=== PATIENT | female | born 1935 | race African-American/Black ===

== ENCOUNTER 2017-07-12 12:09 | Outpatient (CLI) | payer MEDICARE ==
--- NOTE | 2017-07-12 14:45 | RAD ---
AP PELVIS ONE VIEW: History: 81-year-old female with low back pain and right hip pain. FINDINGS: AP pelvis demonstrates some arthrosis changes of the hip joints and SI joints and spondylosis of the lumbar spine. No acute fracture. IMPRESSION: Degenerative changes without acute fracture of the pelvis. POS: NO
--- NOTE | 2017-07-12 14:46 | RAD ---
RIGHT HIP TWO VIEWS: History: 81-year-old female with right hip pain and low back pain. FINDINGS: Mild degenerative changes right hip joint. No acute fracture or dislocation. Minimal bony deminerali zation. IMPRESSION: No fracture or dislocation. Degenerative changes. POS: NO
--- NOTE | 2017-07-12 14:49 | RAD ---
LUMBAR SPINE THREE VIEWS: History: 81-year-old female with low back pain. FINDINGS: There is bony demineralization. There is multilevel disc osteophytosis with narrowing at L4-5 and L5 -S1 as well as fairly extensive facet arthrosis. Mild levoscoliosis of the lower lumbar and sacral s pine. No focal bone lesion. IMPRESSION: Spondylosis. Mild levoscoliosis. No acute fracture or dislocation. Given potential radiculopathy, co nsideration for a nonemergent MRI study might be of benefit. POS: NO
== END 2017-07-12 12:10 | disposition home or self-care (01) ==
LOC: MADRAD 12:09
PROVIDERS: ATTEND Family Medicine
DX: M25.551 Pain in right hip (principal); M54.5 Low back pain; M47.816 Spondylosis without myelopathy or radiculopathy, lumbar region; M41.9 Scoliosis, unspecified; M16.11 Unilateral primary osteoarthritis, right hip
CPT/HCPCS: 72100; 72170

== ENCOUNTER 2017-10-29 11:53 | Inpatient (IN) | payer MEDICARE, OTHER ==
[2017-10-29 12:18] VITALS: BMI 17.4
[2017-10-29] MEDS ORDERED: Sodium Chloride 0.9% 1,000 ML IV SCH (12:45)
[2017-10-29] MEDS ORDERED: Acetaminophen 650 MG Suppository PR PRN (12:53)
[2017-10-29] MEDS ORDERED: Dextrose 50% Abboject 50 ML SYRINGE SLOW IVP PRN (12:54)
[2017-10-29] MEDS ORDERED: Dextrose 5% in Water 1,000 ML IV PRN (12:54)
[2017-10-29] MEDS ORDERED: Nicotine 21 MG PATCH TD SCH (13:00)
[2017-10-29 13:22] LABS: ALT (SGPT) 13 U/L (8-55); AST (SGOT) 17 U/L (5-34); Albumin 3.8 g/dL (3.4-4.8); Alkaline Phosphatase 52 U/L (40-150); Anion Gap 18 mmol/L (10-20); BUN (Urea Nitrogen) 6 mg/dL (9.8-20.1); Bilirubin, Total 0.5 mg/dL (0.2-1.2); Calc. Creatinine Clearance 40 mL/min (70-130); Calcium 9.7 mg/dL (7.8-10.44); Carbon Dioxide 25 mmol/L (23-31); Chloride 104 mmol/L (98-107); Estimated GFR-MDRD 87; Globulin 4.1 g/dL (2.4-3.5); Glucose 161 mg/dL (83-110); Potassium 3.3 mmol/L (3.5-5.1); Protein, Total 7.9 g/dL (6.0-8.3); Sodium 144 mmol/L (136-145)
[2017-10-29 13:24] LABS: CKMB 3.2 ng/mL (0-6.6); Troponin I 0.019 ng/mL (< 0.028)
[2017-10-29 13:42] LABS: Band 1 % (5-11); Eosinophils 2 % (0-10); Hemoglobin 14.7 g/dL (12.0-16.0); Lymphocytes 16 % (21-51); MDiff Complete? YES; Mean Corpuscular HGB CONC 32.6 g/dL (32.0-36.0); Mean Corpuscular Hemoglobin 30.7 pg (27.0-31.0); Mean Corpuscular Volume 94.3 fl (81.0-99.0); Mean Platelet Volume 5.6 fL (7.4-10.4); Monocytes 9 % (0-10); Neutrophil 72 % (42-75); PLT Morphology Comment Appears Adequate; Platelet Count 348 thou/uL (130-400); White Blood Cell (WBC) Count 7.8 thou/uL (4.8-10.8)
[2017-10-29] MEDS: metFORMIN 500 MG TAB PO SCH (16:04)
[2017-10-29] MEDS: Benzonatate 100 MG CAP PO SCH (16:04)
[2017-10-29] MEDS ORDERED: Potassium Chloride 10 MEQ TAB PO SCH (18:00)
--- NOTE | 2017-10-29 18:38 | HP ---
ATTENDING/PCP: Kimmy Blount M.D. REASON FOR ADMISSION: Shortness of breath. HISTORY OF PRESENT ILLNESS AND HOSPITAL COURSE: Ms. George is an 82-year-old -[place] female with history of COPD, chronic tobacco use, hypertension , diabetes. The patient was initially seen in the clinic at [facility] today for persistent cough for about a week, associated with clear mucopurulent sputum production, shortness of breath, and intermittent wheezing. She reports low grade fever. Upon presentation in the clinic, the patient had a fever of 100.6 with blood pressure of 203/97, respirations 36, and heart rate of 123 with O2 sats of 93% room air. The patient was tachypneic with labored breathing at that time in the clinic. The patient was given DuoNeb x1. The wheezing has improved post-nebs treatment, but overall respiratory status was not completely improved. Patient still reports some dyspnea on walking. Repeat O2 sats was 94% at room air. On further examination, patient's flu swab was negative for flu A and B negative. Outpatient chest x-ray showed changes of COPD seen with new focal density in the left mid lung that may represent either pneumonia or new mass or malignancy recommending a followup in 2 weeks after a course of antibiotics. Discussed with patient and the family as represented by her daughter on the phone and daughter in law, Mamie Jasso who brought her to the clinic today the treatment options. Family reports the patient lives by herself and she continues to smoke at home. Patient was deemed will benefit more with inpatient management of pneumonia and family concurs. The patient then agreed as long as it will be in [facility] only, thus she was subsequently admitted. PAST MEDICAL HISTORY: COPD, GERD, type 2 diabetes non-insulin requiring, mixed lipidemia, failure to thrive, essential hypertension, chronic insomnia, depression, anxiety, tobacco smoking unmotivated to quit, BMI less than 19, lumbosacral spondylosis with radiculopathy medical management only, degenerative arthritis of hip. PAST SURGICAL HISTORY: Denies. HOSPITALIZATION: pyelonephritis with right and left hydronephrosis in 2009. FAMILY HISTORY: Father is . Mother is . Diabetes runs in the family and has one sibling that due to lung cancer. SOCIAL HISTORY: The patient is , lives by herself. HABITS: Chronic smoker, at least 1-6 cigarettes per day for several years. She denies alcohol or illicit drug use. ALLERGIES: NKDA. CURRENT MEDICATIONS: Pravastatin 40 mg p.o. daily, Zetia 1 tablet daily, megestrol acetate 625 mg per 5 mL daily, ProAir 108 mcg per ACT, aerosol 2 puffs as needed q.4-6 hours p.r.n., aspirin 81 mg p.o. daily, metformin 500 mg p.o. twice a day, Tylenol with codeine #3 one tablet q.6 hours p.r.n. for pain. REVIEW OF SYSTEMS: GENERAL: Reports fever sensation with chills, generalized weakness, and malaise. HEENT: No acute visual changes or hearing changes. CARDIOVASCULAR: No chest pain, palpitations, syncope, or paroxysmal nocturnal dyspnea. RESPIRATORY: Reports cough, shortness of breath, or wheezing,dyspnea on exertion. No pain with breathing, no bloody sputum. GASTROINTESTINAL: No nausea, vomiting, diarrhea, abdominal pain, rectal bleeding, bowel incontinence. GENITOURINARY: No dysuria, hematuria, frequency, urgency, or incontinence. MUSCULOSKELETAL: Reports chronic low back pain with radiculopathy. No acute joint pain and stiffness. No swelling nor joint effusions. SKIN: No rashes, no lesions, no jaundice or pruritus. NEUROLOGIC: No new motor or sensory losses or acute loss of coordination. ENDOCRINE: No night sweats, diaphoresis, polyphagia, polydipsia. PHYSICAL EXAMINATION: VITAL SIGNS: Blood pressure 178/87, temperature 99.4, pulse 116, respirations 18, O2 sats 95% at room air, weight 98 pounds 1.6 ounces, height 5 feet 3 inches. GENERAL: The patient is awake, alert, oriented x3. Comfortably resting in bed , son at bedside, not in acute distress. HEENT: Normocephalic, atraumatic. PERRL, intact EOM. Anicteric sclerae. Oral mucosa is moist. No oral lesions. NECK: Supple. No LAD, no JVD, no bruit. CHEST: Normal excursion. Coughing on exam. Good air movements, nonlabored breathing. Prolonged expiratory phase. Diminished air movements,base. No expiratory wheezing, rhonchi. No rales, no crackles. CARDIAC: Tachycardic. Normal S1 and S2. No murmurs. ABDOMEN: Flat, soft, normoactive bowel sounds, nondistended, nontender. No rebound, no guarding. Negative CVA tenderness bilaterally. EXTREMITIES: No edema, no cyanosis. Thin limbs. NEURO: Nonfocal. DTRs 2+. Cranial nerves intact. Gait normal. PSYCHIATRIC: Appears calm with appropriate demeanor and affect. ASSESSMENT: 1. Community-acquired pneumonia. 2. Chronic obstructive pulmonary disease in acute exacerbation. 3. Probable lung mass by chest x-ray. Recommending followup chest x-ray post- antibiotic therapy. 4. Diabetes type 2, non-insulin requiring, 5. Mixed lipidemia. 6. Failure to thrive. 7. Chronic tobacco dependence, unmotivated to quit. PLAN: The patient is admitted to Medical/Surgical for inpatient management of pneumonia. Labs ordered include flu swab, CBC, CMP, EKG, cardiac enzymes, blood culture, sputum culture, serial chest x-ray. We will continue current medications as modified per list. We will start on empiric IV antibiotic with Levaquin IV. Tylenol p.r.n. O2 sats to keep O2 90 and above. Gastrointestinal prophylaxis with PPI. Deep venous thrombosis prophylaxis with Lovenox. Further recommendations depending on the hospital course. CODE STATUS: The patient reports FULL CODE, in the presence of the family who concurs. TABITHAD
[2017-10-29] MEDS: Mirtazapine 30 MG Soltab PO SCH (20:38)
[2017-10-29] MEDS: Atorvastatin Calcium 10 MG TAB PO SCH (20:38)
[2017-10-30] MEDS: Sodium Chloride 0.9% 1,000 ML IV SCH ×2 (02:20→11:07)
[2017-10-30] MEDS ORDERED: Enoxaparin Sodium 40 MG/0.4 ML SYRINGE SC SCH (09:00)
[2017-10-30] MEDS: Enoxaparin Sodium 30 MG/0.3 ML SYRINGE SC SCH (09:07)
[2017-10-30] MEDS: Megestrol Acetate 400 MG/10 ML UDCUP PO SCH (09:07)
[2017-10-30] MEDS: metFORMIN 500 MG TAB PO SCH ×2 (09:08→17:06)
[2017-10-30] MEDS: Ezetimibe 10 MG TAB PO SCH (09:08)
[2017-10-30] MEDS: Potassium Chloride 10 MEQ TAB PO SCH (09:08)
[2017-10-30] MEDS: Nicotine 21 MG PATCH TD SCH (09:08)
[2017-10-30 09:15] LABS: Anion Gap 16 mmol/L (10-20); BUN (Urea Nitrogen) 6 mg/dL (9.8-20.1); Calc. Creatinine Clearance 41 mL/min (70-130); Calcium 9.2 mg/dL (7.8-10.44); Carbon Dioxide 22 mmol/L (23-31); Chloride 109 mmol/L (98-107); Estimated GFR-MDRD 90; Glucose 122 mg/dL (83-110); Potassium 3.2 mmol/L (3.5-5.1); Sodium 144 mmol/L (136-145)
--- NOTE | 2017-10-30 09:36 | RAD ---
TWO VIEWS OF THE CHEST: Comparison: 06-03-13, 10-29-17 History: Acute COPD exacerbation. FINDINGS: Two views of the chest shows normal sized cardiomediastinal silhouette. A mass like opacity again is seen projecting over the mid left thorax. No pleural effusion is seen. The bones are unremarkable. IMPRESSION: Mass like opacity projecting over the mid left thorax. This could represent an infectious process or mass. Recommend clinical correlation. If infectious process is present, recommend repeating this radi ograph in 2-3 weeks to ensure resolution of this mass-like opacity. POS: NO
[2017-10-30] MEDS: Benzonatate 100 MG CAP PO SCH (18:17)
[2017-10-30] MEDS: Acetaminophen/Codeine 30-300mg Tablet PO PRN (20:26)
[2017-10-30] MEDS: Atorvastatin Calcium 10 MG TAB PO SCH (20:27)
[2017-10-30] MEDS: Mirtazapine 30 MG Soltab PO SCH (20:28)
[2017-10-31 06:02] LABS: Anion Gap 13 mmol/L (10-20); BUN (Urea Nitrogen) 6 mg/dL (9.8-20.1); Calc. Creatinine Clearance 42 mL/min (70-130); Calcium 8.9 mg/dL (7.8-10.44); Carbon Dioxide 24 mmol/L (23-31); Chloride 110 mmol/L (98-107); Estimated GFR-MDRD Greater than 90; Glucose 136 mg/dL (83-110); Potassium 3.2 mmol/L (3.5-5.1); Sodium 144 mmol/L (136-145)
[2017-10-31] MEDS: metFORMIN 500 MG TAB PO SCH ×2 (08:52→16:54)
[2017-10-31] MEDS: Potassium Chloride 10 MEQ TAB PO SCH (08:52)
[2017-10-31] MEDS: Enoxaparin Sodium 30 MG/0.3 ML SYRINGE SC SCH (08:52)
[2017-10-31] MEDS: Megestrol Acetate 400 MG/10 ML UDCUP PO SCH (08:53)
[2017-10-31] MEDS: Ezetimibe 10 MG TAB PO SCH (08:53)
[2017-10-31] MEDS: Nicotine 21 MG PATCH TD SCH (08:53)
--- NOTE | 2017-10-31 08:55 | CT ---
POST CONTRAST CHEST CT: History: Abnormal chest radiograph. Possible left lung mass. Comparison: None. Correlation: Chest radiograph, 10-29-17 and 10-30-17. Technique: Post contrast chest CT is performed in the axial plane. Coronal reformatted images are sub mitted for interpretation. FINDINGS: No mediastinal mass, lymphadenopathy or hematoma. Heart size is within normal limits. No pericardial effusion. The thoracic aorta and upper abdominal aorta has an overall normal caliber. There is some a therosclerosis. No evidence of periaortic fat stranding. 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 Probable right renal cyst. Remaining solid organs are grossly unremarkable. Trachea and central bronchi are patent. Calcified granuloma in the right lower lobe measuring 7 mm. Emphysematous changes predominately in kandace th upper lobes. Focal linear opacity with slight irregular margination in the left upper lobe measuri ng 1 cm. Lobulated mass in the posterior aspect of the left upper lobe, adjacent to the major fissure measuring 2.8 x 2.2 cm. This mass is felt to correspond to the radiographic findings. Malignancy renuka uld be suspected until proven otherwise. IMPRESSION: Left lung mass, corresponding to recent radiographic finding. The lesion is amenable to percutaneous biopsy, under CT guidance. Code T POS: NO
[2017-10-31] MEDS ORDERED: Acetaminophen 325 MG TAB PO PRN (16:40)
[2017-10-31] MEDS: HumaLOG 300 UNITS/3 ML VIAL SC PRN (17:02)
[2017-10-31] MEDS: Benzonatate 100 MG CAP PO SCH (20:12)
[2017-10-31] MEDS: Atorvastatin Calcium 10 MG TAB PO SCH (20:12)
[2017-10-31] MEDS: Mirtazapine 30 MG Soltab PO SCH (20:16)
[2017-10-31] MEDS: Acetaminophen/Codeine 30-300mg Tablet PO PRN (23:15)
[2017-11-01] MEDS: HumaLOG 300 UNITS/3 ML VIAL SC PRN ×3 (08:05→17:13)
[2017-11-01] MEDS: Nicotine 21 MG PATCH TD SCH (08:44)
[2017-11-01] MEDS: Enoxaparin Sodium 30 MG/0.3 ML SYRINGE SC SCH (08:44)
[2017-11-01] MEDS: Potassium Chloride 10 MEQ TAB PO SCH (08:45)
[2017-11-01] MEDS: Megestrol Acetate 400 MG/10 ML UDCUP PO SCH (08:45)
[2017-11-01] MEDS: Ezetimibe 10 MG TAB PO SCH (08:45)
[2017-11-01] MEDS: metFORMIN 500 MG TAB PO SCH ×2 (08:45→17:10)
[2017-11-01] MEDS ORDERED: Sodium Chloride 0.9% 1,000 ML BAG ONE (12:59)
[2017-11-01] MEDS: Budesonide 0.5 MG/2 ML NEB INH SCH (19:29)
[2017-11-01] MEDS: Atorvastatin Calcium 10 MG TAB PO SCH (20:18)
[2017-11-01] MEDS: Mirtazapine 30 MG Soltab PO SCH (20:19)
[2017-11-02] MEDS: Budesonide 0.5 MG/2 ML NEB INH SCH (05:59)
[2017-11-02 07:43] VITALS: BP 155/77; TEMP 99.8
[2017-11-02] MEDS: Megestrol Acetate 400 MG/10 ML UDCUP PO SCH (08:56)
[2017-11-02] MEDS: Enoxaparin Sodium 30 MG/0.3 ML SYRINGE SC SCH (08:56)
[2017-11-02] MEDS: metFORMIN 500 MG TAB PO SCH (08:57)
[2017-11-02] MEDS: Nicotine 21 MG PATCH TD SCH (08:57)
[2017-11-02] MEDS: Potassium Chloride 10 MEQ TAB PO SCH (08:57)
[2017-11-02] MEDS: Ezetimibe 10 MG TAB PO SCH (08:57)
== END 2017-11-02 10:45 | disposition swing bed (61) | DRG 190 ==
LOC: MADMS 11:53
PROVIDERS: ADMIT Family Medicine; ATTEND Family Medicine
DX: J44.0 Chronic obstructive pulmonary disease with (acute) lower respiratory infection (principal); J18.9 Pneumonia, unspecified organism; Z68.1 Body mass index [BMI] 19.9 or less, adult; E11.9 Type 2 diabetes mellitus without complications; J44.1 Chronic obstructive pulmonary disease with (acute) exacerbation; E87.6 Hypokalemia; I10 Essential (primary) hypertension; K21.9 Gastro-esophageal reflux disease without esophagitis; E78.2 Mixed hyperlipidemia; F32.9 Major depressive disorder, single episode, unspecified; F41.9 Anxiety disorder, unspecified; F17.210 Nicotine dependence, cigarettes, uncomplicated; R62.7 Adult failure to thrive; R91.8 Other nonspecific abnormal finding of lung field; R63.4 Abnormal weight loss; Z79.84 Long term (current) use of oral hypoglycemic drugs; Z79.82 Long term (current) use of aspirin; Z79.899 Other long term (current) drug therapy
CPT/HCPCS: 36415; 36416; 71046; 71260; 80048; 80053; 82553; 84484; 85025; 87040; 87070; 87205; 94640; J1650; J1956; J7050; J7620; J7626

== ENCOUNTER 2017-11-02 11:00 | Inpatient (IN) | payer MEDICARE, OTHER ==
[2017-11-02 11:24] VITALS: BMI 17.4
[2017-11-02] MEDS ORDERED: HumaLOG 300 UNITS/3 ML VIAL SC PRN (13:15)
[2017-11-02] MEDS ORDERED: Acetaminophen 325 MG TAB PO PRN (13:15)
[2017-11-02] MEDS ORDERED: Benzonatate 100 MG CAP PO PRN (13:15)
[2017-11-02] MEDS ORDERED: Acetaminophen/Codeine 30-300mg Tablet PO PRN (13:15)
[2017-11-02] MEDS ORDERED: Dextrose 50% Abboject 50 ML SYRINGE SLOW IVP PRN (13:15)
[2017-11-02] MEDS: metFORMIN 500 MG TAB PO SCH (16:54)
[2017-11-02] MEDS: Budesonide 0.5 MG/2 ML NEB NEB SCH (17:59)
[2017-11-02] MEDS ORDERED: Non-Formulary Item 1 EACH (Pravastatin Sodium [Pravastatin Sodium] 40 MG) PO SCH (21:00)
[2017-11-02] MEDS ORDERED: Atorvastatin Calcium 10 MG TAB PO SCH (21:00)
[2017-11-02] MEDS: Atorvastatin Calcium 10 MG TAB PO SCH (21:30)
[2017-11-03 05:20] LABS: Anion Gap 14 mmol/L (10-20); BUN (Urea Nitrogen) 9 mg/dL (9.8-20.1); Calc. Creatinine Clearance 38 mL/min (70-130); Calcium 9.4 mg/dL (7.8-10.44); Carbon Dioxide 26 mmol/L (23-31); Chloride 107 mmol/L (98-107); Estimated GFR-MDRD 81; Glucose 132 mg/dL (83-110); Potassium 4.3 mmol/L (3.5-5.1); Sodium 143 mmol/L (136-145)
[2017-11-03] MEDS: Budesonide 0.5 MG/2 ML NEB NEB SCH ×2 (05:51→18:22)
[2017-11-03] MEDS: Potassium Chloride 10 MEQ TAB PO SCH (07:42)
[2017-11-03] MEDS: Ezetimibe 10 MG TAB PO SCH (09:33)
[2017-11-03] MEDS: Enoxaparin Sodium 30 MG/0.3 ML SYRINGE SC SCH (09:33)
[2017-11-03] MEDS: metFORMIN 500 MG TAB PO SCH ×2 (09:33→16:17)
[2017-11-03] MEDS: Megestrol Acetate 400 MG/10 ML UDCUP PO SCH (09:35)
[2017-11-03] MEDS: Nicotine 21 MG PATCH TD SCH (09:36)
[2017-11-03] MEDS: HumaLOG 300 UNITS/3 ML VIAL SC PRN (16:15)
[2017-11-03] MEDS: Atorvastatin Calcium 10 MG TAB PO SCH (20:31)
[2017-11-04] MEDS: Budesonide 0.5 MG/2 ML NEB NEB SCH ×2 (05:48→18:21)
[2017-11-04] MEDS: Ezetimibe 10 MG TAB PO SCH (08:09)
[2017-11-04] MEDS: Nicotine 21 MG PATCH TD SCH (08:09)
[2017-11-04] MEDS: Megestrol Acetate 400 MG/10 ML UDCUP PO SCH (08:09)
[2017-11-04] MEDS: metFORMIN 500 MG TAB PO SCH ×2 (08:10→17:06)
[2017-11-04] MEDS: Potassium Chloride 10 MEQ TAB PO SCH (08:10)
[2017-11-04] MEDS: Enoxaparin Sodium 30 MG/0.3 ML SYRINGE SC SCH (08:15)
[2017-11-04] MEDS: HumaLOG 300 UNITS/3 ML VIAL SC PRN ×2 (11:55→17:05)
[2017-11-04] MEDS: Atorvastatin Calcium 10 MG TAB PO SCH (20:30)
[2017-11-05] MEDS: Budesonide 0.5 MG/2 ML NEB NEB SCH ×2 (06:38→18:43)
[2017-11-05] MEDS: Enoxaparin Sodium 30 MG/0.3 ML SYRINGE SC SCH (08:15)
[2017-11-05] MEDS: Megestrol Acetate 400 MG/10 ML UDCUP PO SCH (08:15)
[2017-11-05] MEDS: Potassium Chloride 10 MEQ TAB PO SCH (08:16)
[2017-11-05] MEDS: Ezetimibe 10 MG TAB PO SCH (08:16)
[2017-11-05] MEDS: metFORMIN 500 MG TAB PO SCH (08:16)
[2017-11-05] MEDS: Nicotine 21 MG PATCH TD SCH (08:18)
[2017-11-05] MEDS: Promethazine DM 6.25-15mg/5ml 120 ML BOT PO SCH ×2 (14:32→20:24)
[2017-11-05] MEDS: HumaLOG 300 UNITS/3 ML VIAL SC PRN (18:45)
[2017-11-05] MEDS: Atorvastatin Calcium 10 MG TAB PO SCH (20:23)
[2017-11-06] MEDS: Budesonide 0.5 MG/2 ML NEB NEB SCH ×2 (05:33→18:25)
[2017-11-06] MEDS: Ezetimibe 10 MG TAB PO SCH (08:32)
[2017-11-06] MEDS: Potassium Chloride 10 MEQ TAB PO SCH (08:32)
[2017-11-06] MEDS: glipiZIDE 5 MG TAB PO SCH (08:32)
[2017-11-06] MEDS: Megestrol Acetate 400 MG/10 ML UDCUP PO SCH (08:32)
[2017-11-06] MEDS: Nicotine 21 MG PATCH TD SCH (08:32)
[2017-11-06] MEDS: Promethazine DM 6.25-15mg/5ml 120 ML BOT PO SCH ×3 (08:37→20:01)
[2017-11-06] MEDS: Atorvastatin Calcium 10 MG TAB PO SCH (20:00)
[2017-11-07] MEDS: Budesonide 0.5 MG/2 ML NEB NEB SCH (05:37)
[2017-11-07 07:48] VITALS: BP 113/59; TEMP 99.1
[2017-11-07] MEDS: Megestrol Acetate 400 MG/10 ML UDCUP PO SCH (08:28)
[2017-11-07] MEDS: Ezetimibe 10 MG TAB PO SCH (08:28)
[2017-11-07] MEDS: Potassium Chloride 10 MEQ TAB PO SCH (08:28)
[2017-11-07] MEDS: glipiZIDE 5 MG TAB PO SCH (08:28)
[2017-11-07] MEDS: Nicotine 21 MG PATCH TD SCH (08:29)
[2017-11-07] MEDS: Promethazine DM 6.25-15mg/5ml 120 ML BOT PO SCH (08:29)
[2017-11-07] MEDS: HumaLOG 300 UNITS/3 ML VIAL SC PRN (08:30)
[2017-11-07] MEDS ORDERED: Mometasone Furoate 120 PUFF 220 MCG INH SCH (18:30)
== END 2017-11-07 12:40 | disposition home or self-care (01) | DRG 190 ==
LOC: MADMS 11:00
PROVIDERS: ADMIT Family Medicine; ATTEND Family Medicine
DX: J44.1 Chronic obstructive pulmonary disease with (acute) exacerbation (principal); J18.9 Pneumonia, unspecified organism; J44.0 Chronic obstructive pulmonary disease with (acute) lower respiratory infection; E11.9 Type 2 diabetes mellitus without complications; F17.220 Nicotine dependence, chewing tobacco, uncomplicated; I10 Essential (primary) hypertension; K21.9 Gastro-esophageal reflux disease without esophagitis; E78.2 Mixed hyperlipidemia; F51.04 Psychophysiologic insomnia; F32.9 Major depressive disorder, single episode, unspecified; F41.9 Anxiety disorder, unspecified; M16.10 Unilateral primary osteoarthritis, unspecified hip; M47.26 Other spondylosis with radiculopathy, lumbar region; Z79.84 Long term (current) use of oral hypoglycemic drugs; Z79.82 Long term (current) use of aspirin; Z79.51 Long term (current) use of inhaled steroids; R62.7 Adult failure to thrive
CPT/HCPCS: 36415; 36416; 80048; A4216; J1650; J1956; J7620; J7626

== ENCOUNTER 2019-07-21 16:49 | Outpatient (CLI) | payer MEDICARE, OTHER ==
--- NOTE | 2019-07-21 17:28 | RAD ---
EXAM: Chest 2 views: HISTORY: Malignant carcinoid tumor of the lung COMPARISON: 10/30/2017 FINDINGS: There is a normal-sized cardiomediastinal silhouette. Hyperexpansion of the lungs may be secondary t o COPD. A nodular opacity projecting over the left lower lobe may represent a nodule or a nipple shadow. The bones are unremarkable. IMPRESSION: Possible left lower lobe nodule.
--- NOTE | 2019-07-21 17:42 | RAD ---
EXAM: Left Rib series HISTORY: Rib pain after fall 3 weeks ago COMPARISON: None FINDINGS: Multiple views of the left ribs shows a minimally displaced fracture of the lateral seventh rib. No u nderlying pleural thickening or pneumothorax are seen. IMPRESSION: Left seventh rib fracture
--- NOTE | 2019-07-21 17:42 | RAD ---
EXAM: Right Rib series HISTORY: Rib pain after fall 3 weeks ago COMPARISON: None FINDINGS: Multiple views of the right ribs shows no evidence of displaced rib fracture. No underlying pleural t hickening or pneumothorax are seen. IMPRESSION: 1. No evidence of displaced rib fracture.
== END 2019-07-21 16:50 | disposition home or self-care (01) ==
LOC: MADRAD 16:49
PROVIDERS: ATTEND Family Medicine
DX: R07.81 Pleurodynia (principal); S22.32XA Fracture of one rib, left side, initial encounter for closed fracture; Z85.110 Personal history of malignant carcinoid tumor of bronchus and lung
CPT/HCPCS: 71046

== ENCOUNTER 2020-03-02 14:27 | Outpatient (CLI) | payer MEDICARE, OTHER ==
--- NOTE | 2020-03-02 15:08 | RAD ---
EXAM: CHEST TWO VIEWS: 03/02/20 HISTORY: Pain left sided ribs. FINDINGS: 5.7 cm diameter abnormal opacity in the left mid chest posteriorly possibly a developing large pulmon nora mass versus a focal area of loculated pleural fluid. Healing of the previously noted left rib fra cture. Biapical pleural thickening. No significant cardiomegaly. Diffuse bone demineralization. IMPRESSION: Developing left mid lung zone mass opacity possibly a pulmonary mass versus loculated fluid in the ma yadira fissure on the left side. Hyperinflation and chronic lung changes with old granulomatous disease. Follow-up chest CT scan with IV contrast is recommended for further assessment. Code T POS: RRE
--- NOTE | 2020-03-02 15:09 | RAD ---
Exam: 3 views lumbar spine COMPARISON: 07/12/2017 HISTORY: T12-L1 the left-sided pain FINDINGS: 5 lumbar type vertebra. Stable mild leftward curvature of the lower lumbar spine Visualized sacrum and iliac wings are intact Lumbar spine vertebral body heights are maintained. No fracture Stable mild loss of disc space height and ossified formation at L4-L5 No spondylolisthesis or spondylolysis The thoracic lumbar junction does not demonstrate any acute abnormality. There is mild loss of disc s pace height. IMPRESSION: Mild degenerative change at L4-L5. Further evaluation with MRI if clinically warranted.
--- NOTE | 2020-03-02 15:11 | RAD ---
Exam: 3 views left RIBS HISTORY: Remote left rib fracture. History of lung cancer. COMPARISON: 07/21/2019 FINDINGS: Redemonstration of fractures involving the posterior left seventh, eighth, ninth ribs. Path ologic fracture are favored given the presence of a enlarging left lung mass, incompletely evaluated. IMPRESSION: Left rib fractures which are presumed to be pathologic. Enlarging left lung mass. Refer t o separate chest radiograph report for further detail
== END 2020-03-02 14:28 | disposition home or self-care (01) ==
LOC: MADRAD 14:27
PROVIDERS: ATTEND Family Medicine
DX: R07.81 Pleurodynia (principal); S22.32XA Fracture of one rib, left side, initial encounter for closed fracture; R91.8 Other nonspecific abnormal finding of lung field; M47.816 Spondylosis without myelopathy or radiculopathy, lumbar region
CPT/HCPCS: 36415; 71046; 72100; 82040; 84134